=== PATIENT | male | born 1995 | race Caucasian/White ===

== ENCOUNTER 2021-02-28 13:23 | Emergency (ER) | payer BC ==
[~2021-02-28 13:23] MED LIST: BACTROBAN OINT22 GM EXT; CLEOCIN HCL300 MG PO; IBUPROFEN600 MG PO; Viscous lidocaine2% TOP
[2021-02-28 14:10] LABS: HEMOGLOBIN 16.6 gm/dl (14.0-17.5); RED BLOOD COUNT 5.31 M/UL (4.20-5.50); WHITE BLOOD COUNT 4.5 K/UL (4.5-11.0)
[2021-02-28 14:34] LABS: BUN/CREATININE RATIO 15 (0-10)
[2021-02-28] MEDS ORDERED: ONDANSETRON ODT4 MG SL (17:16)
[2021-02-28] MEDS ORDERED: TORADOL 10 MG T10 MG PO (17:16)
== END 2021-02-28 17:25 | disposition home or self-care (01) ==
LOC: ER1 13:23
PROVIDERS: Physician Assistant
DX: R10.9 Unspecified abdominal pain (principal); R31.9 Hematuria, unspecified; Z87.442 Personal history of urinary calculi
CPT/HCPCS: 80053; 81001; 85025; 96374; 99284; J1885